=== PATIENT | male | born 1940 | race Caucasian/White ===

== ENCOUNTER 2018-04-18 15:02 | Outpatient (CLI) | payer MEDICARE ==
--- NOTE | 2018-04-18 15:56 | RAD ---
CHEST PA AND LATERAL: History: 77-year-old male with history of COPD exacerbation, J44.1; severe position asthma, J45.51. Comparison: 06-28-16 FINDINGS: Increased linear interstitial markings are noted bilaterally, particularly in the lung bases with bor derline heart size. No confluent pneumonia, overt edema, or pleural effusion. IMPRESSION: Mild hyperinflation and chronic lung changes. Stable appearing linear and parenchymal changes in the lung bases. No significant new process. Report was called to Dr. Lewis's office at 1521 hours. POS: [facility]
== END 2018-04-18 15:03 | disposition home or self-care (01) ==
LOC: SCSRAD 15:02
PROVIDERS: ATTEND Family Medicine
DX: J44.1 Chronic obstructive pulmonary disease with (acute) exacerbation (principal); J45.50 Severe persistent asthma, uncomplicated; R91.8 Other nonspecific abnormal finding of lung field
CPT/HCPCS: 71046

== ENCOUNTER 2018-06-21 12:33 | Outpatient (CLI) | payer MEDICARE ==
--- NOTE | 2018-06-21 14:21 | ULT ---
ULTRASOUND RETROPERITONEUM COMPLETE: (RENAL) ESTEFANÍA: 06/21/2018. HISTORY: A 77-year-old male with benign prostatic hyperplasia and incomplete bladder emptying. COMPARISON: 02/27/2017. FINDINGS: In Morison's pouch, there is an approximately 4.5 x 3 x 4 cm simple pedunculated cyst arising from th e cortical surface of the right renal upper pole. There is a septated, lobulated 6.5 x 4 x 3.5 cm pedunculated cyst arising from the left renal cortica l surface. Right kidney measures 12 x 5.5 x 6 cm. The left kidney measures 12.5 x 5 x 5.5 cm. Bilateral renal parenchymal thickness and parenchymal echogenicity are normal. There is no hydronephrosis bilaterally. Enlarged prostate gland with superior process that deeply invaginates the base of the urinary bladder . Incidentally, there is an approximately 3 x 3 cm diverticulum protruding superiorly from the anterior superior aspect of the urinary bladder, with a wide neck. Along the posterior surface of the urinary bladder, the mucosa is very irregular, with saw-tooth appe arance. This appears similar to that of the ultrasound of 11/11/2015. This was less well demonstrated on the ultrasound of 02/27/2017. The prevoid urinary bladder volume is 150 mL. The postvoid urinary bladder volume has actually increased, to approximately 200 mL. IMPRESSION: 1. Very poor bladder emptying. The postvoid bladder volume is greater than that of the prevoid volu me. 2. Diverticulum at the anterior superior aspect of the urinary bladder near midline. 3. Benign prostatic hyperplasia. 4. Very irregular mucosal surface of the posterior aspect of the urinary bladder, with saw-tooth con figuration, similar to that seen on the ultrasound of 11/11/2015. Etiology uncertain. 5. Two benign pedunculated exophytic renal cysts, one on each side. The one on the right is simple and the one on the left is multilobulated. 6. No interval change in the appearance of the kidneys. JN Cecile POS: [facility]
== END 2018-06-21 12:34 | disposition home or self-care (01) ==
LOC: BICULT 12:33
PROVIDERS: ATTEND Urology
DX: N40.0 Benign prostatic hyperplasia without lower urinary tract symptoms (principal); N28.1 Cyst of kidney, acquired; R33.9 Retention of urine, unspecified; N32.3 Diverticulum of bladder; R39.14 Feeling of incomplete bladder emptying
CPT/HCPCS: 36415; 76770; 80048; 81001; 87077; 87086

== ENCOUNTER 2018-07-22 13:58 | Outpatient (CLI) | payer MEDICARE ==
--- NOTE | 2018-07-22 15:40 | RAD ---
CHEST TWO VIEWS: HISTORY: Dyspnea. COMPARISON: 04/18/2018 FINDINGS: Two views of the chest show normal sized cardiomediastinal silhouette. There is no evidence of consol idation, mass, or pleural effusion. Degenerative changes are seen in the spine and shoulders. IMPRESSION: No evidence of acute cardiopulmonary disease. POS: [facility]
== END 2018-07-22 13:59 | disposition home or self-care (01) ==
LOC: RAD 13:58
PROVIDERS: ATTEND Internal Medicine
DX: R06.00 Dyspnea, unspecified (principal)
CPT/HCPCS: 71046

== ENCOUNTER 2018-09-17 12:10 | Outpatient (CLI) | payer MEDICARE ==
[2018-09-17 13:14] LABS: Actual Bicarbonate (HCO3a) 29.9 mEq/L (22-28); Analyzer IN Cardio OR; Base Excess (BEa) 4.1 mEq/L (-2.0 to +3.0); CO2 Tension 49.2 mmHg (35.0-45.0); Calcium, Ionized 1.23 mmol/L (1.12-1.30); Carboxyhemoglobin (COHb) 1.3 gm% (0.0-3.0); Hemoglobin (Hb) 14.5 g/dL (14.0-18.0); Potassium - ABG Lab 4.26 mmol/L (3.70-5.30)
[2018-09-17 13:16] LABS: O2 Tension (PaO2) 52.1 mmHg (> 70.0)
[2018-09-17 13:17] LABS: Puncture Site RR
== END 2018-09-17 12:11 | disposition home or self-care (01) ==
LOC: CP 12:10
PROVIDERS: ATTEND Internal Medicine
DX: J44.9 Chronic obstructive pulmonary disease, unspecified (principal)
CPT/HCPCS: 82805; 94060; 94727; 94729

== ENCOUNTER 2019-07-18 12:14 | Outpatient (CLI) | payer MEDICARE ==
--- NOTE | 2019-07-18 13:15 | ULT ---
US Renal Bilateral STANDARD History: Cysts Comparison: Renal ultrasound June 2018 Findings: Real-time grayscale and color evaluation of the kidneys and urinary bladder was performed. The right kidney measures 11.7 x 5.4 x 5.5 cm and the left kidney measures 12.7 x 6.1 x 6.4 cm. Urinary bladder prevoid volume is 373 mL. The post void volume is 265 mL. There is an inferior impres des upon the urinary bladder by the enlarged prostate. There is also abnormal jagged irregular posterior urinary bladder wall. Cyst superior pole right kidney is simple and measures up to 5.3 cm. Septated cyst superior pole left kidney measures up to 5.3 cm, similar to slightly severe decrease in size. Nonobstructing left interpolar renal calculus measuring up to 6 mm. Impression: 1. No concerning new features of the bilateral renal cysts. 2. Nonobstructive 5-6 mm left interpolar renal calculus. 3. Abnormal papillary type thickening posterior urinary bladder wall for which nonemergent CT urogram or direct visualization is recommended. 4. Abnormal increased post void urinary bladder volume.
[2019-07-18 14:45] LABS: Bacteria/HPF None Seen HPF (None Seen); Bilirubin Negative (Negative); Blood, Urine Negative (Negative); Clarity Clear (Clear); Glucose, Urine (Dipstick) Normal (Negative); Leukocyte Negative Leu/uL (Negative); Nitrite Negative (Negative); Protein, Urine (Dipstick) Negative (Neg-Trace); RBC/HPF 0-3 HPF (0-3); Squamous Epithelial 0-3 HPF (0-3); Urobilinogen 3 mg/dL (Less than 2); WBC/HPF 0-3 HPF (0-3)
[2019-07-18 14:52] LABS: Anion Gap 13 mmol/L (10-20); BUN (Urea Nitrogen) 21 mg/dL (8.4-25.7); Calc. Creatinine Clearance 0 mL/min (70-130); Calcium 9.4 mg/dL (7.8-10.44); Carbon Dioxide 32 mmol/L (23-31); Chloride 100 mmol/L (98-107); Estimated GFR-MDRD Greater than 90; Glucose 99 mg/dL (83-110); Potassium 4.7 mmol/L (3.5-5.1); Sodium 140 mmol/L (136-145)
== END 2019-07-18 12:15 | disposition home or self-care (01) ==
LOC: SCSULT 12:14
PROVIDERS: ATTEND Urology
DX: N28.1 Cyst of kidney, acquired (principal); N40.1 Benign prostatic hyperplasia with lower urinary tract symptoms; R33.8 Other retention of urine; N32.3 Diverticulum of bladder; N20.0 Calculus of kidney
CPT/HCPCS: 36415; 76770; 80048; 81001; 87086